=== PATIENT | female | born 1975 | race Caucasian/White ===

== ENCOUNTER → 2018-07-25 | Outpatient (CLI) | payer BC ==
--- NOTE | 2018-07-25 10:13 | XR ---
EXAMINATION TYPE: XR ankle limited LT DATE OF EXAM: 07/25/2018 COMPARISON: NONE HISTORY: Pain FINDINGS: Two views of the ankle demonstrate the ankle mortise to be intact and symmetric. The joint spaces ar e preserved. The osseous structures are intact. IMPRESSION: 1. No definite acute fracture or dislocation, if symptoms persist follow-up study in 7 to 10 days wou ld be suggested.
--- NOTE | 2018-07-25 10:25 | XR ---
EXAMINATION TYPE: XR foot limited LT DATE OF EXAM: 07/25/2018 COMPARISON: NONE HISTORY: Pain TECHNIQUE: Two views are submitted. FINDINGS: The osseous structures are intact. There is no acute fracture or dislocation. Joint spaces are p reserved. IMPRESSION: 1. No acute fracture or dislocation. If symptoms persist, follow-up exam in 7 to 10 days could be ob tained.
== END ==
LOC: RADXRMAIN 09:24
PROVIDERS: ATTEND Internal Medicine Hematology & Oncology
DX: G89.21 Chronic pain due to trauma (principal)

== ENCOUNTER → 2019-07-11 | Outpatient (CLI) | payer BC ==
--- NOTE | 2019-07-11 15:10 | XR ---
EXAMINATION TYPE: XR wrist limited RT DATE OF EXAM: 07/11/2019 CLINICAL HISTORY: Right wrist pain, nontraumatic TECHNIQUE: Frontal, lateral and oblique images of the right wrist are obtained. COMPARISON: None FINDINGS: There is no acute fracture/dislocation evident in the right wrist. The joint spaces in th e right wrist appear within normal limits. The overlying soft tissue appears unremarkable. IMPRESSION: There is no acute fracture or dislocation in the right wrist.
== END | disposition home or self-care (01) ==
LOC: RADXRMAIN 14:45
PROVIDERS: ATTEND Internal Medicine Hematology & Oncology
DX: M25.531 Pain in right wrist (principal)

== ENCOUNTER → 2020-07-18 | Outpatient (CLI) | payer BC ==
--- NOTE | 2020-07-18 08:37 | XR ---
EXAMINATION TYPE: XR thoracic spine complete DATE OF EXAM: 07/18/2020 COMPARISON: NONE HISTORY: None TECHNIQUE: 3 views submitted FINDINGS: Alignment is anatomic. The pedicles are intact. Mild superior endplate compression fracture of T6. Mi ld multilevel degenerative disc disease. Vertebral body height and disc interspaces are maintained. IMPRESSION: 1. Mild superior endplate compression fracture approximately level T6. 2. Mild multilevel degenerative disc disease.
--- NOTE | 2020-07-18 08:38 | XR ---
EXAM TYPE: LUMBAR SPINE X RAY SERIES COMPARISON: NONE HISTORY: Pain TECHNIQUE: 3 views are submitted. FINDINGS: Alignment is anatomic. The pedicles are intact. The transverse processes are intact. There is no s pondylolisthesis. Degenerative change L5-S1. No compression deformities. Suggestion of a transition segment. IMPRESSION: 1. No acute process.
== END | disposition home or self-care (01) ==
LOC: RADXRMAIN 07:37
PROVIDERS: ATTEND Internal Medicine Hematology & Oncology
DX: M51.34 Other intervertebral disc degeneration, thoracic region (principal); S22.058A Other fracture of T5-T6 vertebra, initial encounter for closed fracture
CPT/HCPCS: 72072; 72100

== ENCOUNTER → 2020-08-08 | Outpatient (CLI) | payer BC ==
--- NOTE | 2020-08-08 15:04 | NM ---
EXAMINATION TYPE: NM bone/joint limited DATE OF EXAM: 08/08/2020 COMPARISON: Plain film 07/18/2020 HISTORY: Pain TECHNIQUE: After the intravenous administration of 24.6 mCi Tc 99m MDP. Images acquired 3.5 hours p ost injection. Multiple views of are submitted. Limited scanning performed at the thoracic lumbar spine region. Soft tissue uptake is normal. There i s no abnormal uptake within the visualized osseous structures to suggest acute process. IMPRESSION: No acute osseous abnormality. Limited scan.
== END | disposition home or self-care (01) ==
LOC: RADNMMAIN 10:18
PROVIDERS: ATTEND Physical Medicine & Rehabilitation
DX: M54.6 Pain in thoracic spine (principal); M47.894 Other spondylosis, thoracic region; S22.050A Wedge compression fracture of T5-T6 vertebra, initial encounter for closed fracture
CPT/HCPCS: 78300; A9503

== ENCOUNTER → 2021-09-23 | Outpatient (CLI) | payer BC ==
--- NOTE | 2021-09-23 16:47 | XR ---
Right hand HISTORY: M25.531 3 views the right hand correlated to right wrist dated 07/11/2019 Bone mineralization, joint spaces and alignment are maintained. IMPRESSION: Normal right hand.
== END | disposition home or self-care (01) ==
LOC: RADXRMAIN 14:13
PROVIDERS: ATTEND Internal Medicine Hematology & Oncology
DX: M25.531 Pain in right wrist (principal)

== ENCOUNTER → 2024-11-23 | Outpatient (CLI) | payer BC ==
--- NOTE | 2024-11-23 13:53 | XR ---
EXAMINATION TYPE: XR shoulder complete RT DATE OF EXAM: 11/23/2024 12:35 PM COMPARISON: None CLINICAL INDICATION: Female, 49 years old with history of M25.511 PAIN IN RIGHT SHOULDER; PHH, pain TECHNIQUE: XR shoulder complete RT; examined in AP, internally rotated and scapular Y projections. FINDINGS: No evidence of acute osseous pathology, joint dislocation, or soft tissue swelling. The remaining po rtions of the visualized chest are unremarkable. IMPRESSION: No acute osseous pathology. [facility], , 11/23/2024 1:51 PM
== END | disposition home or self-care (01) ==
LOC: RADXRMAIN 12:18
PROVIDERS: ATTEND Family Medicine
DX: M25.511 Pain in right shoulder (principal)

== ENCOUNTER → 2025-04-17 | Outpatient (CLI) | payer BC ==
--- NOTE | 2025-04-17 12:58 | XR ---
EXAMINATION TYPE: XR Hip Complete LT DATE OF EXAM: 04/17/2025 12:37 PM COMPARISON: None. CLINICAL INDICATION: Female, 49 years old with history of M25.552, M25.531, Z20.89, M54.6, K75.81, pa in TECHNIQUE: 2 view(s) obtained. FINDINGS: Femoral head articulates with the acetabulum. Joint space is preserved. No acute fracture or dislocat ion is evident. Follow up exams can be performed as clinically indicated. IMPRESSION: 1. No acute osseous abnormality left hip [facility], , 04/17/2025 12:56 PM
== END | disposition home or self-care (01) ==
LOC: RADXRMAIN 12:19
PROVIDERS: ATTEND Internal Medicine Hematology & Oncology
DX: M25.552 Pain in left hip (principal); M25.531 Pain in right wrist; Z20.89 Contact with and (suspected) exposure to other communicable diseases; M54.6 Pain in thoracic spine; K75.81 Nonalcoholic steatohepatitis (NASH)
CPT/HCPCS: 73502